=== PATIENT | male | born 1970 | race Caucasian/White ===

== ENCOUNTER → 2019-08-02 | Outpatient (CLI) | payer BC ==
[~2019-08-02] MED LIST: NORFLEX100 MG; Z.0.LIPITOR10 MG PO; Z.0.NAPROXEN500 MG; [UNRECOGNIZED DRUG - OTHER] PO
[2019-08-02 10:45] LABS: BLOOD UREA NITROGEN 14 mg/dL (7-26); BUN/CREATININE RATIO 18 (6-25); EST GLOMERULAR FILTRATION RATE > 60 ML/MIN (60-)
--- NOTE | 2019-08-02 14:07 | Diagnostic Imaging Report ---
CT of the abdomen and pelvis History: Left lower quadrant abdominal pain Comparison: CT of the abdomen dated 11/14/2014. Technique: Multidetector CT scanning of the abdomen and pelvis was performed from the level of the lung bases to the inferior pubic ramus with contrast DOSE REDUCTION: The examination was performed according to departmental dose-optimization program which includes automated exposure control, adjustment of the mA and/or kV according to patient size and/or use of iterative reconstruction technique. Discussion: The lung bases are clear. There is a 2.4 cm meningioma in the left hepatic lobe which is unchanged from examination dated 11/14/2014. No suspicious hepatic lesions are identified. The gallbladder is present nondistended. There are no radiopaque gallstones. There is no intrahepatic or extra hepatic ductal dilatation. The spleen is within normal limits. The bilateral adrenal glands are within normal limits. The pancreas is homogeneous in attenuation. There is no pancreatic ductal dilatation. No peripancreatic inflammatory stranding is present. The kidneys are normal in size and enhance symmetrically. No hydroureteronephrosis bilaterally. No renal calculi. The stomach, small, and large bowel are nondistended. There is no evidence of obstruction. No bowel wall thickening is appreciated. The appendix is normal. There are scattered colonic diverticula without evidence of acute diverticulitis. No free intraperitoneal air or ascites. The abdominal aorta is of normal course and caliber. No enlarged abdominal or retroperitoneal lymph nodes are identified. The urinary bladder is within normal limits. There are no acute osseous abnormalities. IMPRESSION: 1. Colonic diverticulosis without evidence of acute diverticulitis. 2. Unchanged left hepatic lobe hemangioma. 3. No CT evidence of acute abdominal or pelvic pathology. Signed by: Alex Hopper MD on 08/02/2019 2:04 PM
== END ==
LOC: CT 09:29
PROVIDERS: ATTEND Internal Medicine Gastroenterology
DX: R10.32 Left lower quadrant pain (principal)
CPT/HCPCS: 36415; 74177; 82565; 84520

== ENCOUNTER → 2019-08-03 | Outpatient (CLI) | payer BC ==
--- NOTE | 2019-08-03 15:47 | Diagnostic Imaging Report ---
EXAMINATION: MRI of the brain without contrast. HISTORY: Vertigo COMPARISON: None. TECHNIQUE: Sagittal T2; axial DWI, T2, FLAIR, T1-IR, T2 gradient echo; coronal FLAIR. FINDINGS: Parenchyma: 1. No abnormal signal intensity 2. No mass, hemorrhage, acute or chronic infarcts. Skull: Unremarkable. Vessels: Expected flow voids present in the major arteries and dural sinuses. Extra-axial spaces: No abnormal signal intensity or mass effect. Brain volume: Within normal limits for age. Ventricles: No hydrocephalus or displacement. Foramen magnum: Unremarkable. Sella: Asymmetric fullness of the sella turcica, a right inferior pituitary gland lesion cannot is suspected as there is also minimal left-sided pituitary stalk deviation. Paranasal / mastoid sinuses: No significant inflammatory disease. IMPRESSION: 1. No brain abnormalities. 2. Fullness of the sella turcica, if clinically indicated, consider a dedicated sella turcica MRI without and with contrast for further evaluation. Signed by: Dr. Allison Danielle M.D. on 08/03/2019 3:44 PM
== END ==
LOC: MRI 14:07
PROVIDERS: ATTEND Family Medicine
DX: R42 Dizziness and giddiness (principal)
CPT/HCPCS: 70551

== ENCOUNTER → 2019-10-04 | Day surgery (SDC) | payer BC ==
[2019-10-01 11:37] LABS: BASOPHILS % 0.6 % (0.0-1.0); EOSINOPHILS # (AUTO) 0.2 (0.0-0.4); EOSINOPHILS % 2.4 % (0.0-6.0); HEMATOCRIT 40.7 % (38.2-49.6); HEMOGLOBIN 13.7 g/dL (14.0-18.0); LYMPHOCYTES % 30.9 % (18.0-39.1); MEAN CORPUSCULAR HEMOGLOBIN 29.4 pg (28-32); MEAN CORPUSCULAR HGB CONC 33.7 g/dL (31-35); MEAN CORPUSCULAR VOLUME 87.3 fL (81-99); MONOCYTES # (AUTO) 0.5 (0.2-0.8); MONOCYTES % 7.3 % (4.4-11.3); NEUTROPHILS # (AUTO) 3.7 (2.1-6.9); NEUTROPHILS % 58.2 % (38.7-80.0); PLATELET COUNT 247 x10e3/uL (140-360); RED BLOOD COUNT 4.66 x10e6/uL (4.3-5.7); RED CELL DISTRIBUTION WIDTH 12.6 % (11.7-14.4)
[2019-10-01 11:53] LABS: BLOOD UREA NITROGEN 12 mg/dL (7-26); BUN/CREATININE RATIO 15 (6-25); CALCIUM 9.3 mg/dL (8.4-10.2); CARBON DIOXIDE 24 mmol/L (22-29); CHLORIDE 107 mmol/L (98-107); CREATININE, SERUM 0.81 mg/dL (0.72-1.25); EST GLOMERULAR FILTRATION RATE > 60 ML/MIN (60-); GLUCOSE 96 mg/dL (74-118); SODIUM 143 mmol/L (136-145)
[~2019-10-04] MED LIST changes: +BUPIVACAINE 0.5%/EPI 30 ML SDV INJ ONE; +DEXAMETHASONE SOD PHOS INJ 4 MG/ML VIAL ONE; +EPHEDRINE SULFATE INJ 50 MG/ML VIAL ONE; +FENTANYL CITRATE/PF 100MCG/2 ML INJ ONE; +HYDROCODONE/APAP 7.5MG-325MG 1 EA TAB ONE; +KETOROLAC TROMETHAMINE 30 MG/ML VIAL ONE; +LIDOCAINE HCL 2% LOCAL INJ 5 ML SDV VIAL INJ ONE; +LOSARTAN POTASS25 MG PO; +MIDAZOLAM HCL 2 MG/2 ML VIAL ONE; +MULTI-VITAMIN1 EACH PO; +ONDANSETRON HCL INJ 2MG/ML 2ML 2 MG/ML VIAL ONE; +PROPOFOL IV EMULSION 10 MG/ML 20 ML VIAL ONE; +SEVOFLURANE INHAL SOLN 250 ML PEN BTL ONE
--- OUTSIDE RECORDS SUMMARY | 2019-10-04 06:31 | XMS REPORT ---
Author Author [facility] Address Unknown Phone Unavailable Care Team Providers Care Senior Buyer Planner Name Role Phone AGUSTIN HESS Unavailable Unavailable SRINI TYLER Unavailable Unavailable Problems This patient has no known problems. Allergies, Adverse Reactions, Alerts This patient has no known allergies or adverse reactions. Medications This patient has no known medications. Results Test Description Test Time Test Comments Text Results Atomic Results Result Comments MRI BRAIN WO 2019-08-03 15:39:00 [place] [address] Patient Name: OLGA ENGLISH MR #: [id number] : 1970 Age/Sex: 49/M Req #: [id number] Adm Physician: Ordered by: HESS ANDREW DO Report #: [id number] Location: MRI Room/Bed: Procedure: [id number] MRI/MRI BRAIN WO Exam Date: Exam Time: REPORT STATUS: Signed EXAMINATION: MRI of the brain without contrast. HISTORY: Vertigo COMPAR GUSTAVO: None. TECHNIQUE: Sagittal T2; axial DWI, T2, FLAIR, T1-IR, T2 gradient echo; coronal FLAIR. FINDINGS: Parenchyma: 1. No abnormal signal intensity 2. No mass, hemorrhage, acute or chronic infarcts. Skull: Unremarkable. Vessels: Expected flow voids present in the major arteries and dural sinuses. Extra-axial spaces: No abnormal signal intensity or mass effect. Brain volume: Within normal limits for age. Ventricles: No hydrocephalus or displacement. Foramen magnum: Unremarkable. Sella: Asymmetric fullness of the sella turcica, a right inferior pituitary gland lesion cannot is suspected as there is also minimal left-sided pituitary stalk deviation. Paranasal / mastoid sinuses: No significant inflammatory disease. IMPRESSION: 1. No brain abnormalities. 2. Fullness of the sella turcica, if clinically indicated, consider a dedicated sella turcica MRI without and with contrast for further evaluation. Signed by: Dr. Fara Danielle M.D. on 08/03/2019 3:44 PM Dictated By: FARA DANIELLE MD 43 Transcribed By: PHUONG on 08/03/191543 COPY TO: AGUSTIN HESS DO CT ABDOMEN/PELVIS W 2019-08-02 13:59:00 [place] [address] Patient Name: OLGA ENGLISH MR #: [id number] : 1970 Age/Sex: 49/M Req #: [id number] Adm Physician: Ordered by: SRINI TYLER MD Report #: [id number] Location: CT Room/Bed: Procedure: [id number] CT/CT ABDOMEN/PELVIS W Exam Date: 08/02/19 Exam Time: 1100 REPORT STATUS: Signed CT of the abdomen and pelvis History: Left lower quadrant abdominal pain Comparison: CT of the abdomen dated 11/14/2014. Technique: Multidetector CT scanning of the abdomen and pelvis was performed from the level of the lung bases to the inferior pubic ramus with contrast DOSE REDUCTION: The examination was performed according to departmental dose- optimization program which includes automated exposure control, adjustment of the mA and/or kV according to patient size and/or use of iterative reconstruction technique. Discussion: The lung bases are clear. There is a 2.4 cm meningioma in the left hepatic lobe which is unchanged from examination dated 11/14/2014. No suspicious hepatic lesions are identified. The gallbladder is present nondistended. There are no radiopaque gallstones. There is no intrahepatic or extra hepatic ductal dilatation. The spleen is within norm al limits. The bilateral adrenal glands are within normal limits. The pancreas is homogeneous in attenuation. There is no pancreatic ductal dilatation. No peripancreatic inflammatory stranding is present. The kidneys are normal in size and enhance symmetrically. No hydroureteronephrosis bilaterally. No renal calculi. The stomach, small, and large bowel are nondistended. There is no evidence of obstruction. No bowel wall thickening is appreciated. The appendix is normal. There are scattered colonic diverticula without evidence of acute diverticulitis. No free intraperitoneal air or ascites. The abdominal aorta is of normal course and caliber. No enlarged abdominal or retroperitoneal lymph nodes are identified. The urinary bladder is within normal limits. There are no acute osseous abnormalities. IMPRESSION: 1. Colonic diverticulosis without evidence of acute diverticulitis. 2. Unchanged left hepatic lobe hemangioma. 3. No CT evidence of acute abdominal or pelvic pathology. Signed by: Alex Allison MD on 08/02/2019 2:04 PM Dictated By: ALEX ALLISON MD [id number] Transcribed By: PHUONG on 08/02/19 0578 COPY TO: SRINI TYLER MD
[2019-10-04 10:25] VITALS: BP 127/88
--- NOTE | 2019-10-04 12:38 | Operative Report ---
DATE OF PROCEDURE: 10/04/2019 SURGEON: Kana Galeano MD PREOPERATIVE DIAGNOSIS: Cystic mass of the left buttocks and hip area. POSTOPERATIVE DIAGNOSIS: Cystic mass of the left buttocks and hip area. OPERATION PERFORMED: Excision of cystic mass of the left buttock and hip area. ANESTHESIA: General. COMPLICATIONS: None. ESTIMATED BLOOD LOSS: Minimal. DESCRIPTION OF PROCEDURE: With the patient lying in bed in the lithotomy position under good general anesthesia, the perineum and left hip area were prepped with Betadine solution and draped in the usual manner. The area surrounding the mass was then infiltrated with 0.25% Marcaine with epinephrine. An elliptical incision was made. It was carried down through the subcutaneous tissue and the cystic mass was totally and completely removed, and sent for pathological examination. Hemostasis was then ascertained. The subcutaneous tissue was then reapproximated with interrupted sutures of 3-0 Vicryl and the skin was closed with interrupted vertical mattress sutures of 3-0 silk. A dressing was applied. The sponge, lap, and needle count was correct. The patient tolerated the procedure well and returned to the recovery room in stable condition. MD LORI Cui/MODL /[id number]
== END | disposition home or self-care (01) ==
LOC: OR 06:29
PROVIDERS: ATTEND Surgery
DX: L72.0 Epidermal cyst (principal); I10 Essential (primary) hypertension; Z01.810 Encounter for preprocedural cardiovascular examination; Z01.812 Encounter for preprocedural laboratory examination; Z87.891 Personal history of nicotine dependence
CPT/HCPCS: 11403; 12032; 36415; 80048; 85025; 88304; 93005; J1100; J1885; J2001; J2250; J2405; J2704; J3010

== ENCOUNTER → 2021-08-30 | Outpatient (CLI) | payer BC ==
[~2021-08-30] MED LIST changes: -BUPIVACAINE 0.5%/EPI 30 ML SDV INJ ONE; -DEXAMETHASONE SOD PHOS INJ 4 MG/ML VIAL ONE; -EPHEDRINE SULFATE INJ 50 MG/ML VIAL ONE; -FENTANYL CITRATE/PF 100MCG/2 ML INJ ONE; -HYDROCODONE/APAP 7.5MG-325MG 1 EA TAB ONE; -KETOROLAC TROMETHAMINE 30 MG/ML VIAL ONE; -LIDOCAINE HCL 2% LOCAL INJ 5 ML SDV VIAL INJ ONE; -MIDAZOLAM HCL 2 MG/2 ML VIAL ONE; -ONDANSETRON HCL INJ 2MG/ML 2ML 2 MG/ML VIAL ONE; -PROPOFOL IV EMULSION 10 MG/ML 20 ML VIAL ONE; -SEVOFLURANE INHAL SOLN 250 ML PEN BTL ONE
== END ==
LOC: MRI 14:12
PROVIDERS: ATTEND Family Medicine
DX: S83.421A Sprain of lateral collateral ligament of right knee, initial encounter (principal)

== ENCOUNTER → 2021-12-05 | Day surgery (SDC) | payer BC ==
[~2021-12-05] MED LIST changes: +AMITIZA24 MCG PO; +FENOFIBRATE67 MG PO; +FENTANYL CITRATE/PF 100MCG/2 ML INJ ONE; +GLUCAGON FOR INJ 1 MG VIAL ONE; +HYOSCYAMINE SULFATE 0.5 MG/ML INJ ONE; +LIDOCAINE HCL 2% LOCAL INJ 5 ML SDV VIAL INJ ONE; +MELOXICAM7.5 MG PO; +MIDAZOLAM HCL 2 MG/2 ML VIAL ONE; +PROPOFOL IV EMULSION 10 MG/ML 20 ML VIAL ONE
[2021-12-05 09:40] VITALS: BP 134/74
== END | disposition home or self-care (01) ==
LOC: OR 07:16
PROVIDERS: ATTEND Internal Medicine Gastroenterology
DX: Z12.11 Encounter for screening for malignant neoplasm of colon (principal); K63.5 Polyp of colon; K57.30 Diverticulosis of large intestine without perforation or abscess without bleeding; K64.8 Other hemorrhoids; K21.9 Gastro-esophageal reflux disease without esophagitis; K44.9 Diaphragmatic hernia without obstruction or gangrene; Z71.3 Dietary counseling and surveillance; E78.5 Hyperlipidemia, unspecified; I10 Essential (primary) hypertension; F17.210 Nicotine dependence, cigarettes, uncomplicated; Z01.810 Encounter for preprocedural cardiovascular examination; Z01.812 Encounter for preprocedural laboratory examination; Z20.822 Contact with and (suspected) exposure to COVID-19; Z79.899 Other long term (current) drug therapy; Z68.27 Body mass index [BMI] 27.0-27.9, adult; Z80.0 Family history of malignant neoplasm of digestive organs
CPT/HCPCS: 45385; 93005; J1610; J1980; J2001; J2250; J2704; J3010; U0002; 45378